=== PATIENT | male | born 1945 | race Hispanic/Latino ===

== ENCOUNTER 2017-04-10 03:07 | Emergency (ER) | payer MEDICARE, OTHER ==
[2017-04-10 03:07] VITALS: BMI 29.5
[2017-04-10 03:51] VITALS: BP 142/96; PULSE 96; RESP 20; TEMP 98.6; O2SAT 97
--- NOTE | 2017-04-10 04:17 | C.PDOC ---
History Of Present Illness 71 year old male presents to the ED with complaints of diffuse itching in all extremities since yesterday. Patient states he has not used any new creams, medications, or foods but notes the use of new black pants when the itching began. He notes a history of emphysema, hypertension, and diabetes. Patient denies any shortness of breath, chest pains, rash, or insect bites. Time Seen by Provider: 04/10/17 03:40 Chief Complaint (Nursing): Abnormal Skin Integrity History Per: Patient History/Exam Limitations: no limitations Onset/Duration Of Symptoms: Days (since yesterday) Current Symptoms Are (Timing): Still Present Quality Of Symptoms: Itching Recent travel outside of the [place]: No Past Medical History Reviewed: Historical Data, Nursing Documentation, Vital Signs Vital Signs: Last Vital Signs Temp 98.6 F 04/10/17 03:50 Pulse 96 H 04/10/17 03:50 Resp 20 04/10/17 03:50 BP 142/96 H 04/10/17 03:50 Pulse Ox 97 04/10/17 04:29 - Medical History PMH: Asthma, Benign Prostatic Hyperplasia (HAS 22FR VALLE UPON ARRIVAL), COPD, Diabetes, Emphysema, HTN, Hypercholesterolemia - [facility] Procedures DX ULTRASOUND NEC (06/18/13) INSERT INDWELLING CATH (06/18/13) PERCUTAN NEEDLE BIOPSY OF PROSTATE (06/18/13) REPLACE INDWELLING CATH (06/19/13) ROTATOR CUFF REPAIR (06/29/14) SHOULDER SYNOVECTOMY (06/29/14) Family History: States: Unknown Family Hx - Social History Hx Tobacco Use: No Hx Alcohol Use: No Hx Substance Use: No - Immunization History Hx Tetanus Toxoid Vaccination: No Hx Influenza Vaccination: No Hx Pneumococcal Vaccination: No Review Of Systems Constitutional: Negative for: Fever, Chills Eyes: Negative for: Redness Cardiovascular: Negative for: Chest Pain, Palpitations Respiratory: Negative for: Cough, Shortness of Breath Gastrointestinal: Negative for: Nausea, Vomiting, Abdominal Pain, Diarrhea Physical Exam - Physical Exam Additional Physical Exam Comments: Constitutional: No acute distress. WDWN. Head: Normocephalic. Atraumatic. Eyes: PERRL. EOMI. ENT: Moist mucous membranes. Neck: Supple. Cardiovascular: Regular rate and rhythm. Chest: No tenderness. Respiratory: Clear to auscultation bilaterally. GI: Soft. Nontender. Nondistended. Normoactive bowel sounds. No rebound. No guarding. Back: No CVA and no mid-line tenderness. Musculoskeletal: No tenderness or swelling of extremities. Skin: No rash. Neurologic: Alert, no focal deficit. ED Course And Treatment O2 Sat by Pulse Oximetry: 97 (room air ) Medical Decision Making Medical Decision Making: -pt with no rash. no new medications, only new thing is a painr of black pants today. will d/c home with benadryl and f/u pmd. Disposition Counseled Patient/Family Regarding: Diagnosis, Need For Followup, Rx Given - Disposition Referrals: Homer Mccoy MD [Staff Provider] - Disposition: HOME/ ROUTINE Disposition Time: 04:37 Condition: STABLE Additional Instructions: Take Benadryl 25 mg by mouth every 6 hours for itch- makes you sleepy- no driving or operating machinery. Follow up with Dr Mccoy. Return immediately to ER for any difficulty breathing or swallowing. l Prescriptions: DiphenhydrAMINE [Benadryl] 25 mg PO Q6 #20 cap Instructions: Itchy Skin (ED) Forms: Gen Discharge Inst Filipino Print Language: BURUNDIAN - Clinical Impression Clinical Impression: Itchy skin - Scribe Statement The provider has reviewed the documentation as recorded by the Scribe Anca Lugo All medical record entries made by the Scribe were at my direction and personally dictated by me. I have reviewed the chart and agree that the record accurately reflects my personal performance of the history, physical exam, medical decision making, and the department course for this patient. I have also personally directed, reviewed, and agree with the discharge instructions and disposition.
== END 2017-04-10 04:52 | disposition home or self-care (01) ==
LOC: C.ER 03:07
DX: L29.9 Pruritus, unspecified (principal)

== ENCOUNTER 2018-06-23 10:42 | Day surgery (SDC) | payer MEDICARE, MEDICAID ==
[2018-06-20 09:24] VITALS: BMI 31.8
[2018-06-23] MEDS ORDERED: Ciprofloxacin 400mg/200ml D5W 400 MG/200 ML BAG IVPB ONE (14:27)
[2018-06-23] MEDS ORDERED: Midazolam 2 MG/2 ML VIAL ONE (14:28)
[2018-06-23] MEDS ORDERED: Propofol 10 mg/ml Inj (20 ML) ONE (14:29)
[2018-06-23] MEDS: Gentamicin 160 MG in Sodium Chloride 0.9% 100 ML IVPB ONE ×2 (14:40→15:00)
--- NOTE | 2018-06-23 15:08 | PCM.SURG1 ---
Surgeon's Initial Post Op Note - Surgeon's Notes Surgeon: alexx Control Panel Builder: Libby Type of Anesthesia: General LMA Anesthesia Administered By: STAFF Pre-Operative Diagnosis: BPH elevated psa Operative Findings: enlarged prostate Post-Operative Diagnosis: BPH elevated PSA MURILLO Operation Performed: Cystoscopy us guided prostate bx Specimen/Specimens Removed: bx prostate 12 cores Estimated Blood Loss: EBL {In ML}: 0 Blood Products Given: N/A Drains Used: No Drains Post-Op Condition: Good Date of Surgery/Procedure: 06/23/18 Time of Surgery/Procedure: 15:08
[2018-06-23] MEDS ORDERED: HYDROmorphone 0.5 mg/0.5 ml ISec IVP PRN (15:14)
[2018-06-23] MEDS ORDERED: Lactated Ringer's 1,000 ML IV SCH (15:15)
[2018-06-23 16:22] VITALS: PULSE 76; RESP 16; TEMP 98; O2SAT 96
[2018-06-23 17:48] VITALS: BP 171/90
--- NOTE | 2018-06-24 01:56 | OP ---
PROCEDURE DATE: 06/23/2018 SURGEON: Obed Miguel MD PREOPERATIVE DIAGNOSES: Benign prostatic hypertrophy and elevated prostate-specific antigen. POSTOPERATIVE DIAGNOSES: Benign prostatic hypertrophy with bladder outlet obstruction, elevated prostate-specific antigen. PROCEDURES: Cystoscopy, ultrasound guided transrectal biopsy. DESCRIPTION OF PROCEDURE: As follows: The patient was first cystoscoped with #21 Storz panendoscope. The pendulous and membranous urethra was normal. The prostatic urethra showed trilobar hypertrophy with significant outlet obstruction. There was compensatory trabeculation of bladder, +3. There was no evidence of urothelial tumor or stone. The scope was then removed. Then, transrectal probe was inserted per rectum, and multiple transrectal biopsies were done in a symmetrical fashion. A 12-core biopsy was obtained. The patient tolerated this well. Based on the cystoscopic findings and the biopsies negative, the patient is a candidate for GreenLight laser. Obed Miguel MD
== END 2018-06-23 17:37 | disposition home or self-care (01) ==
LOC: C.SDS 10:42
PROVIDERS: ATTEND Urology
DX: N40.1 Benign prostatic hyperplasia with lower urinary tract symptoms (principal); N32.0 Bladder-neck obstruction; R97.20 Elevated prostate specific antigen [PSA]; N13.8 Other obstructive and reflux uropathy
CPT/HCPCS: 55700; 82948; 88305; 88342; J0744; J1580

== ENCOUNTER 2018-07-07 11:35 | Day surgery (SDC) | payer MEDICARE, MEDICAID ==
[2018-06-20 09:24] VITALS: BMI 31.8
[2018-07-07] MEDS ORDERED: Gentamicin 160 MG in Sodium Chloride 0.9% 100 ML IVPB ONE (12:37)
[2018-07-07] MEDS ORDERED: Propofol 10 mg/ml Inj (20 ML) ONE (15:26)
[2018-07-07] MEDS ORDERED: Ciprofloxacin 400mg/200ml D5W 400 MG/200 ML BAG IVPB ONE (15:46)
[2018-07-07] MEDS ORDERED: HYDROmorphone 0.5 mg/0.5 ml ISec IVP PRN (16:34)
--- NOTE | 2018-07-07 16:36 | PCM.SURG1 ---
Surgeon's Initial Post Op Note - Surgeon's Notes Surgeon: Lamont Occupational Health Physiotherapist: corie Type of Anesthesia: General LMA Anesthesia Administered By: staff Pre-Operative Diagnosis: BPH/MURILLO Operative Findings: BPH/MURILLO Post-Operative Diagnosis: Same Operation Performed: TULAP Specimen/Specimens Removed: NA Estimated Blood Loss: EBL {In ML}: 0 Blood Products Given: N/A Drains Used: No Drains Post-Op Condition: Good Date of Surgery/Procedure: 07/07/18 Time of Surgery/Procedure: 16:37
[2018-07-07 19:03] VITALS: BP 150/84; PULSE 84; RESP 20; TEMP 97.8; O2SAT 97
--- NOTE | 2018-07-08 05:24 | OP ---
PROCEDURE DATE: 07/07/2018 PREOPERATIVE DIAGNOSIS: Benign prostatic hypertrophy with bladder outlet obstruction. POSTOPERATIVE DIAGNOSIS: Benign prostatic hypertrophy with bladder outlet obstruction. PROCEDURE: GreenLight laser vaporization of the prostate (Transurethral laser ablation of the prostate). SURGEON: Obed Miguel MD FINDINGS: Trilobar hypertrophy of the prostate with the small median lobe. DESCRIPTION OF PROCEDURE: As follows: The detailed informed consent was obtained from the patient after full explantation of the risks and complications of the procedure. The patient was made aware of all possible complications, limitations and alternatives to this procedure. He agreed to proceed with the procedure and accepts its complications and limitations. The patient was brought into the room. A time-out was taken according to the rules and regulations of [facility]. The patient received prophylactic antibiotics. He was placed in the lithotomy position and cystoscope with the laser cystoscope. The pendulous and membranous urethras were normal. The prostatic urethra showed trilobar hypertrophy with significant outlet obstruction to the small median lobe. There was no urothelial tumor or stones and there was a small median lobe. The cystoscope element was removed and the laser resectoscope element was inserted in the sheath, and vaporization of the prostate was begun at 11 o'clock and carried down to 6 o'clock, vaporizing all obstructing prostate tissue from just distal to the bladder neck to just proximal to the verumontanum. No injury to the verumontanum or external sphincter occurred. The median lobe was vaporized in a similar fashion as well as the roof tissue. Once meticulous hemostasis was achieved, a #20 two-way 5 mL catheter was inserted and the Oswald catheter was inserted. The irrigation was cleared. The patient was sent to the recovery room in good condition. Obed Miguel MD
== END 2018-07-07 18:50 | disposition home or self-care (01) ==
LOC: C.SDS 11:35
PROVIDERS: ATTEND Urology
DX: N40.1 Benign prostatic hyperplasia with lower urinary tract symptoms (principal); N13.8 Other obstructive and reflux uropathy
CPT/HCPCS: 52648; 82948; J0744; J1170; J1580

== ENCOUNTER 2019-02-21 20:32 | Emergency (ER) | payer MEDICARE, MEDICAID ==
[2019-02-21 20:32] VITALS: BMI 31.8
--- NOTE | 2019-02-21 20:40 | C.PDOC ---
History Of Present Illness 73 year old male with a history of hypertension, COPD (not on home O2), diabetes, high cholesterol, and CKD presents to the emergency department with complaints of high blood pressure. Patient notes that his symptoms began yesterday, measuring at 212/90 with associated headache. Patient states that the headache was not of sudden onset, nor was it the worst of his life. Patient denies neurological deficits, neck stiffness, trauma/fall, chest pain, decreased urinary output, GI and complaints, rash, fever, and chills. Patient states that he has been taking Amlodipine 10mg and Clonidine 0.3mg patch. Time Seen by Provider: 02/21/19 20:40 Chief Complaint (Nursing): High Blood Pressure History Per: Patient History/Exam Limitations: no limitations Onset/Duration Of Symptoms: Days (1) Current Symptoms Are (Timing): Still Present Associated Symptoms: Headache. denies: Chest Pain, Dizziness, Blurred Vision, Focal Weakness Quality Of Symptoms: No Rhythm Irregularity Past Medical History Reviewed: Historical Data, Nursing Documentation, Vital Signs Vital Signs: Last Vital Signs Temp 98.4 F 02/21/19 20:36 Pulse 72 02/21/19 20:36 Resp 18 02/21/19 20:36 BP 177/92 H 02/21/19 20:36 Pulse Ox 96 02/21/19 20:36 Primary Care Provider: Homer Mccoy - Medical History PMH: Asthma, Benign Prostatic Hyperplasia (HAS 22FR VALLE UPON ARRIVAL), COPD, Diabetes, Emphysema, HTN, Hypercholesterolemia, Peripheral Edema, Chronic Kidney Disease (Renal insufficiency) Surgical History: No Surg Hx - [facility] Procedures DX ULTRASOUND NEC (06/18/13) INSERT INDWELLING CATH (06/18/13) PERCUTAN NEEDLE BIOPSY OF PROSTATE (06/18/13) REPLACE INDWELLING CATH (06/19/13) ROTATOR CUFF REPAIR (06/29/14) SHOULDER SYNOVECTOMY (06/29/14) Family History: States: No Known Family Hx - Social History Hx Tobacco Use: No Hx Alcohol Use: No Hx Substance Use: No - Immunization History Hx Tetanus Toxoid Vaccination: No Hx Influenza Vaccination: No Hx Pneumococcal Vaccination: No Review Of Systems Constitutional: Negative for: Fever, Chills, Weakness Eyes: Negative for: Pain, Vision Change ENT: Negative for: Ear Pain, Mouth Pain, Throat Pain Cardiovascular: Negative for: Chest Pain, Palpitations, Orthopnea, Edema, Light Headedness Respiratory: Negative for: Cough, Shortness of Breath, Wheezing Gastrointestinal: Negative for: Nausea, Vomiting, Abdominal Pain, Diarrhea, Melena, Hematochezia, Hematemesis Genitourinary: Negative for: Dysuria, Frequency, Incontinence Musculoskeletal: Negative for: Neck Pain Skin: Negative for: Rash, Lesions Neurological: Positive for: Headache. Negative for: Weakness, Numbness, Confusion Physical Exam - Physical Exam Appears: Well, Non-toxic, No Acute Distress Skin: Normal Color, Warm, Dry Head: Atraumatic, Normacephalic, No Tenderness Eye(s): bilateral: Normal Inspection, PERRL, EOMI Ear(s): Bilateral: Normal Nose: Normal Oral Mucosa: Moist Tongue: Normal Appearing Lips: Normal Appearing Throat: Normal, No Erythema, No Exudate, No Drooling Neck: Normal, Supple, Other (no meningeal signs) Lymphatic: Normal Exam, No Adenopathy Chest: Symmetrical, No Tenderness Cardiovascular: Rhythm Regular, No Friction Rub, No Murmur, No JVD Respiratory: Normal Breath Sounds, No Rales, No Rhonchi, No Wheezing Gastrointestinal/Abdominal: Normal Exam, Soft, No Tenderness, No Mass, No Distention, No Guarding, No Rebound, No Hernia Back: Normal Inspection, No CVA Tenderness, No Vertebral Tenderness Extremity: Normal ROM Extremity: Bilateral: Atraumatic, No Pedal Edema Neurological/Psych: Oriented x3, Normal Speech, Normal Cognition, Normal Cranial Nerves, No Cerebellar Signs, Normal Motor, Normal Sensation Gait: Steady Other Neurological Findings: No Facial Palsy Extremity: Right: No Drift, Left: No Drift, Upper: No Drift, Lower: No Drift ED Course And Treatment - Laboratory Results Result Diagrams: 02/21/19 21:21 02/21/19 21:21 ECG Rhythm: Sinus Rhythm ECG Interpretation: Normal Interpretation Of ECG: Normal Sinus rhythm at 67bpm, no STEMI O2 Sat by Pulse Oximetry: 96 (RA) Pulse Ox Interpretation: Normal Medical Decision Making Medical Decision Makin73 year old male with a history of hypertension, COPD (not on home O2), diabetes, high cholesterol, and CKD presents to the emergency department with complaints of high blood pressure. Mild MUÑIZ, not worst of life or sudden in onset. No FND. No thunderclap like headache. Normal neuro exam. No meningeal signs on exam. No CP or SOB. EKG: NSR 67bpm, no STEMI. Impression: hypertensive urgency Plan: CT Head CMP CBC Apresoline 10mg IVP Reglan 10mg IVP Tylenol 650mg PO 2147 labs largely unremarkable from baseline BP 174 systolic, hydralazine held CT on my read unremarkable [address] unremarkable, neuo exam remains unremarkable BP remains <180 systolic clear for d/c home with return indications and f/u. Pt agreeable to plan Disposition - Disposition Referrals: Homer Mccoy MD [Staff Provider] - Tyler Baum MD [Staff Provider] [facility] [Outside] [facility] [Outside] Disposition: HOME/ ROUTINE Disposition Time: 22:21 Condition: STABLE Additional Instructions: SWETHA ISAAC, thank you for letting us take care of you today. Your provider was Piotr Pinto and you were treated for HIGH BLOOD PRESSURE. The emergency medical care you received today was directed at your acute symptoms. If you were prescribed any medication, please fill it and take as directed. It may take several days for your symptoms to resolve. Return to the Emergency Department if your symptoms worsen, do not improve, or if you have any other problems. Please contact your doctor or call one of the physicians/clinics you have been referred to that are listed on the Patient Visit Information form that is included in your discharge packet. Bring any paperwork you were given at discharge with you along with any medications you are taking to your follow up visit. Our treatment cannot replace ongoing medical care by a primary care provider outside of the emergency department. Thank you for allowing the [facility] team to be part of your care today. If you had an X-Ray or CT scan: A Radiologist will review the ED reading if any change in treatment is needed we will contact you. If you had a blood, urine, or wound culture: It will take several days for the results, if any change in treatment is needed we will contact you. If you had an STI test: It will take 48 hours for the results. Please call after 1 week if you have not heard back. Instructions: High Blood Pressure in Adults, Migraine Headache (DC) Forms: TRUSTe (Austrian), [employer]e (Swedish) Print Language: DANISH - Clinical Impression Clinical Impression: Hypertensive urgency, Headache - Scribe Statement The provider has reviewed the documentation as recorded by the Scribe (Cristóbal Pool) Provider Attestation: All medical record entries made by the Scribe were at my direction and personally dictated by me. I have reviewed the chart and agree that the record accurately reflects my personal performance of the history, physical exam, medical decision making, and the department course for this patient. I have also personally directed, reviewed, and agree with the discharge instructions and disposition.
[2019-02-21 21:23] LABS: BASO # 0.1 K/uL (0.0-0.2); BASO % 0.8 % (0.0-2.0); EOS # 0.2 K/uL (0.0-0.7); EOS % 2.1 % (0.0-4.0); HEMOGLOBIN 12.9 g/dL (12.0-18.0); LYMPH # 1.5 K/uL (1.0-4.3); LYMPH % 14.9 % (20.0-40.0); MEAN CORPUSCULAR HEMOGLOBIN 32.8 pg (27.0-31.0); MEAN CORPUSCULAR HGB CONC 34.9 g/dL (33.0-37.0); MEAN PLATELET VOLUME 10.1 fL (7.2-11.7); MONO # 0.9 K/uL (0.0-0.8); MONO % 9.2 % (0.0-10.0); NEUT # 7.5 K/uL (1.8-7.0); NRBC % 0.1 % (0.0-2.0); RBC 3.92 Mil/uL (4.40-5.90); RED CELL DISTRIBUTION WIDTH 14.9 % (11.5-14.5); WHITE BLOOD COUNT 10.3 K/uL (4.8-10.8)
[2019-02-21 21:38] LABS: ALB/GLOB RATIO 1.1 (1.0-2.1); ALBUMIN 3.9 g/dL (3.5-5.0)
[2019-02-21 21:51] VITALS: O2SAT 96
[2019-02-21 23:00] VITALS: BP 156/72; PULSE 60; RESP 15; TEMP 98
--- NOTE | 2019-02-22 09:36 | CT ---
Date of service: 02/21/2019 PROCEDURE: CT HEAD WITHOUT CONTRAST. HISTORY: Headache. Hypertension. COMPARISON: None available. TECHNIQUE: Axial computed tomography images were obtained through the head/brain without intravenous contrast. Radiation dose: Total exam DLP = 1161.62 mGy-cm. This CT exam was performed using one or more of the following dose reduction techniques: Automated exposure control, adjustment of the mA and/or kV according to patient size, and/or use of iterative reconstruction technique. FINDINGS: HEMORRHAGE: No acute parenchymal, subarachnoid or extra-axial hemorrhage. BRAIN: There are mild chronic periventricular white matter ischemic changes that extend peripherally into the deep white matter both cerebral hemispheres.. Moderate generalized volume loss. VENTRICLES: No obstructive hydrocephalus. CALVARIUM: Calvarium intact. PARANASAL SINUSES: Unremarkable as visualized. No significant inflammatory changes. MASTOID AIR CELLS: Unremarkable as visualized. No inflammatory changes. OTHER FINDINGS: Changes of bilateral cataract surgery. IMPRESSION: No acute intracranial hemorrhage. Minor chronic periventricular white matter ischemic changes. Moderate generalized volume loss
--- NOTE | 2019-02-23 13:23 | CARD ---
APPROVED REPORT Date of service: 02/21/2019 EKG Measurement Heart [id number] <Conclusion> Normal sinus rhythm Normal ECG
== END 2019-02-21 23:04 | disposition home or self-care (01) ==
LOC: C.ER 20:32
DX: I16.0 Hypertensive urgency (principal); I12.9 Hypertensive chronic kidney disease with stage 1 through stage 4 chronic kidney disease, or unspecified chronic kidney disease; N18.9 Chronic kidney disease, unspecified; R51 Headache; E78.00 Pure hypercholesterolemia, unspecified; J44.9 Chronic obstructive pulmonary disease, unspecified
CPT/HCPCS: 70450; 80053; 85025; 93005; 96374; 99285; J2765